=== PATIENT | male | born 1945 | race Caucasian/White ===

== ENCOUNTER 2018-06-12 09:34 | Emergency (ER) | payer MEDICARE, OTHER ==
[~2018-06-12] VITALS: Ht 175.3 cm; Wt 90.7 kg
[2018-06-12] MEDS ORDERED: MEDROLDOSEPACK PO (11:19)
[2018-06-12] MEDS ORDERED: NORCO 5-325 TA1 EACH PO (11:19)
[2018-06-12 11:30] VITALS: BP 109/68
== END 2018-06-12 11:30 | disposition home or self-care (01) ==
LOC: M.ERS 09:34
DX: S70.01XA Contusion of right hip, initial encounter (principal); E11.9 Type 2 diabetes mellitus without complications; E78.00 Pure hypercholesterolemia, unspecified; I10 Essential (primary) hypertension; F32.9 Major depressive disorder, single episode, unspecified; W19.XXXA Unspecified fall, initial encounter; Y93.89 Activity, other specified; Y92.89 Other specified places as the place of occurrence of the external cause; Y99.8 Other external cause status

== ENCOUNTER 2019-07-02 05:08 | Emergency (ER) | payer OTHER ==
[~2019-07-02] VITALS: Ht 175.3 cm; Wt 86.2 kg
[~2019-07-02 05:08] MED LIST: MEDROLDOSEPACK PO; NORCO 5-325 TA1 EACH PO
[2019-07-02] MEDS ORDERED: TOPROL XL100 MG PO (05:28)
[2019-07-02] MEDS ORDERED: AMIODARONE HCL400 MG PO (05:29)
[2019-07-02] MEDS ORDERED: ELIQUIS5 MG PO (05:29)
[2019-07-02] MEDS ORDERED: LIPITOR 20 MG T20 M1 PO (05:29)
[2019-07-02] MEDS ORDERED: MELATONIN3 M1 PO (05:30)
[2019-07-02] MEDS ORDERED: PROZAC20 M1 PO (05:30)
[2019-07-02] MEDS ORDERED: FERROUS SULFAT324 M1 PO (05:31)
[2019-07-02] MEDS ORDERED: METFORMIN HCL500 M3 PO (05:31)
[2019-07-02] MEDS ORDERED: FOLIC ACID1 MG PO (05:32)
[2019-07-02] MEDS ORDERED: VITAMIN B-121000 MC2 (05:32)
[2019-07-02] MEDS ORDERED: VITAMIN D31250 MCG PO (05:33)
[2019-07-02 05:59] LABS: ABSOLUTE LYMPHOCYTES 2.2 thou/uL (0.8-5.3); ABSOLUTE MONOCYTES 1.4 thou/uL (0.0-1.2); BASOPHILS 0.4 %; EOSINOPHILS 0.3 %; HEMOGLOBIN 14.3 gm/dL (14.0-18.0); LYMPHOCYTES 18.7 %; MCH 27.9 pg (26.0-34.0); MCHC 33.2 g/dL (28.0-37.0); MONOCYTES 12.1 %; MPV 8.4 fl. (7.2-11.1); NUCLEATED RBCS 0 /100WBC; PLATELET COUNT* 267 thou/uL (150-400); POLYS 68.5 %; RBC 5.12 mil/uL (4.50-6.00); WBC 11.6 thou/uL (4.0-11.0)
[2019-07-02 06:18] LABS: CALCIUM 8.5 mg/dL (8.5-10.1); POTASSIUM 5.2 mmol/L (3.5-5.1)
[2019-07-02 06:28] LABS: ALBUMIN 3.8 g/dL (3.4-5.0); TOTAL BILIRUBIN 0.7 mg/dL (<0.1-1.0); TOTAL PROTEIN 8.1 g/dL (6.4-8.2)
[2019-07-02 06:54] LABS: APTT 45.7 Seconds (25.0-31.3); INR 1.2; PROTIME 11.9 Seconds (9.20-11.50)
[2019-07-02 09:26] LABS: URINE BILIRUBIN NEGATIVE (Negative); URINE BLOOD NEGATIVE (Negative); URINE CLARITY CLEAR; URINE COLOR YELLOW; URINE GLUCOSE-RANDOM NEGATIVE (Negative); URINE KETONES NEGATIVE (Negative); URINE LEUKOCYTES-REFLEX NEGATIVE (Negative); URINE NITRITE-REFLEX NEGATIVE (Negative); URINE PROTEIN NEGATIVE (Negative); URINE SPECIFIC GRAVITY >= 1.030 (1.005-1.030); URINE UROBILINOGEN 0.2 E.U./dl (0.2-1.0)
--- NOTE | 2019-07-02 10:20 | EKG ---
[place] [address] ELECTROCARDIOGRAM REPORT Name: REJI BECKWITH Room: [facility]#: [id number] Admission: 07/02/19 Attend Phys: Discharge: Date of : 49 Date of Service: 07/02/19 0528 Report #: [id number] THIS REPORT FOR: //name// [facility] ED Test Date: 2019-07-02 Test Time: 05:28:23 Pat Name: REJI BECKWITH Department: Room: Gender: National Account Director: [place] : 1945 Requested By: Radha Steiner Order Number: [id number] MD: Juan Wilson Measurements Intervals [place] Rate: 68 P: 47 CT: 214 QRS: 2 QRSD: 166 T: 136 QT: 466 QTc: 496 Interpretive Statements Sinus rhythm Borderline prolonged CT interval Left bundle branch block Compared to ECG 02/21/2008 06:02:19 Left bundle-branch block now present Sinus tachycardia no longer present Electronically Signed On 07-02-2019 10:18:37 CDT by Juan Wilson [email or web address] <ELECTRONICALLY SIGNED> By: Juan Wilson MD, [facility] 07/02/19 1018 0528 0528 Juan Wilson MD, [facility] /EPI
[2019-07-02 12:25] VITALS: BP 133/75
== END 2019-07-02 12:25 | disposition short-term general hospital (02) ==
LOC: M.ERS 05:08
PROVIDERS: Personal Emergency Response Attendant
DX: S01.01XA Laceration without foreign body of scalp, initial encounter (principal); N19 Unspecified kidney failure; E11.9 Type 2 diabetes mellitus without complications; E78.00 Pure hypercholesterolemia, unspecified; I48.91 Unspecified atrial fibrillation; E87.1 Hypo-osmolality and hyponatremia; R42 Dizziness and giddiness; Z91.041 Radiographic dye allergy status; W18.39XA Other fall on same level, initial encounter; Y93.89 Activity, other specified; Y92.89 Other specified places as the place of occurrence of the external cause; Y99.8 Other external cause status